=== PATIENT | male | born 1940 | race Hispanic/Latino ===

== ENCOUNTER 2022-10-02 20:02 | Emergency (ER) | payer MEDICARE ==
[~2022-10-02] VITALS: Ht 177.8 cm; Wt 90.7 kg
[2022-10-02] MEDS ORDERED: HYDRALAZINE HCL 10 MG TAB PO ONE ×2 (20:30→21:45)
== END 2022-10-02 22:52 | disposition home or self-care (01) ==
LOC: ER 20:16
DX: I10 Essential (primary) hypertension (principal); I25.10 Atherosclerotic heart disease of native coronary artery without angina pectoris; R94.31 Abnormal electrocardiogram [ECG] [EKG]; Z95.1 Presence of aortocoronary bypass graft
CPT/HCPCS: 93005; 99282

== ENCOUNTER 2022-11-07 05:18 | Observation (INO) | payer MEDICARE ==
[~2022-11-07] VITALS: Ht 177.8 cm; Wt 90.7 kg
[2022-11-07] MEDS ORDERED: MECLIZINE HCL 12.5 MG TAB PO STA (05:27)
[2022-11-07 05:42] LABS: BASOPHILS % 0.3 % (0.0-1.0); EOSINOPHILS # (AUTO) 0.2 (0.0-0.4); EOSINOPHILS % 2.3 % (0.0-6.0); HEMATOCRIT 36.1 % (38.2-49.6); HEMOGLOBIN 12.9 g/dL (14.0-18.0); LYMPHOCYTES # (AUTO) 1.3 (1.0-3.2); LYMPHOCYTES % 20.5 % (18.0-39.1); MEAN CORPUSCULAR HEMOGLOBIN 32.9 pg (28-32); MEAN CORPUSCULAR HGB CONC 35.7 g/dL (31-35); MEAN CORPUSCULAR VOLUME 92.1 fL (81-99); MONOCYTES # (AUTO) 0.5 (0.2-0.8); NEUTROPHILS # (AUTO) 4.4 (2.1-6.9); NEUTROPHILS % 68.4 % (38.7-80.0); PLATELET COUNT 161 x10e3/uL (140-360); RED BLOOD COUNT 3.92 x10e6/uL (4.3-5.7); RED CELL DISTRIBUTION WIDTH 11.8 % (11.7-14.4)
[2022-11-07 06:08] LABS: ALBUMIN/GLOBULIN RATIO 1.2 (0.8-2.0); ANION GAP 13.2 mmol/L (8-16); CALCIUM 9.2 mg/dL (8.4-10.2); CREATININE, SERUM 1.15 mg/dL (0.72-1.25); POTASSIUM 4.2 mmol/L (3.5-5.1)
[2022-11-07] MEDS ORDERED: ONDANSETRON HCL INJ 2MG/ML 2ML 2 MG/ML VIAL IV STA (06:11)
[2022-11-07 06:14] LABS: CREATINE KINASE MB 1.1 ng/mL (0-5.0)
[2022-11-07] MEDS ORDERED: ONDANSETRON HCL INJ 2MG/ML 2ML 2 MG/ML VIAL ONE (06:24)
[2022-11-07 06:36] LABS: CLARITY,URINE CLEAR (CLEAR); COLOR,URINE YELLOW (YELLOW); KETONES,URINE NEGATIVE (NEGATIVE); LEUKOCYTE ESTERASE ,URINE NEGATIVE (NEGATIVE); NITRITE,URINE NEGATIVE (NEGATIVE); PROTEIN,URINE DIPSTICK NEGATIVE (NEGATIVE); URINE UROBILINOGEN 0.2 mg/dL (0.2 - 1)
[2022-11-07 06:56] LABS: BACTERIA,URINE RARE /HPF; EPITHELIAL CELLS,URINE FEW /LPF; WBC,URINE (MAN) 0-5 /HPF (0-5)
[2022-11-07] MEDS ORDERED: ONDANSETRON HCL INJ 2MG/ML 2ML 2 MG/ML VIAL IV PRN (07:15)
[2022-11-07] MEDS ORDERED: TETANUS/DIPHTHERIA TOX ADULT 0.5 ML SYR IM ONE (07:45)
[2022-11-07] MEDS: DOXYCYCLINE HYCLATE TABLET 100 MG TAB PO SCH ×2 (08:39→16:31)
[2022-11-07] MEDS ORDERED: ATORVASTATIN CA40 MG PO (11:03)
[2022-11-07] MEDS ORDERED: OMEPRAZOLE40 MG PO (11:03)
[2022-11-07] MEDS ORDERED: AMLODIPINE BESY10 MG PO (11:03)
[2022-11-07] MEDS ORDERED: LISINOPRIL40 MG PO (11:03)
[2022-11-07] MEDS ORDERED: METOPROLOL SUC100 MG PO (11:03)
[2022-11-07] MEDS ORDERED: LISINOPRIL 20 MG TAB PO PRN (11:15)
[2022-11-07] MEDS ORDERED: ASPIRIN 81 MG CHEW TAB PO ONE (11:15)
[2022-11-07 15:19] VITALS: BP 132/53
[2022-11-07 15:21] VITALS: BP 132/53
[2022-11-07] MEDS ORDERED: IOPAMIDOL 370 MG/ML 100 ML INFUS..BTL INJ ONE (16:08)
[2022-11-07] MEDS ORDERED: SODIUM CHLORIDE 0.9% 100 ML ONE (16:08)
[2022-11-07 16:24] VITALS: BP 150/55
[2022-11-07] MEDS ORDERED: ALBUTEROL/IPRATROPIUM 3 ML NEB ONE (16:46)
[2022-11-07 20:00] VITALS: BP 134/55
[2022-11-08 00:04] VITALS: BP 134/50
[2022-11-08 04:24] VITALS: BP 147/63
[2022-11-08 06:09] LABS: BASOPHILS % 0.4 % (0.0-1.0); EOSINOPHILS # (AUTO) 0.2 (0.0-0.4); EOSINOPHILS % 2.4 % (0.0-6.0); HEMATOCRIT 33.8 % (38.2-49.6); HEMOGLOBIN 11.5 g/dL (14.0-18.0); LYMPHOCYTES # (AUTO) 1.2 (1.0-3.2); LYMPHOCYTES % 16.4 % (18.0-39.1); MEAN CORPUSCULAR HEMOGLOBIN 31.6 pg (28-32); MEAN CORPUSCULAR VOLUME 92.9 fL (81-99); MONOCYTES # (AUTO) 0.5 (0.2-0.8); MONOCYTES % 7.6 % (4.4-11.3); NEUTROPHILS # (AUTO) 5.2 (2.1-6.9); NEUTROPHILS % 72.9 % (38.7-80.0); PLATELET COUNT 199 x10e3/uL (140-360); RED BLOOD COUNT 3.64 x10e6/uL (4.3-5.7); RED CELL DISTRIBUTION WIDTH 11.6 % (11.7-14.4)
[2022-11-08 06:31] LABS: ANION GAP 11.2 mmol/L (8-16); CREATININE, SERUM 0.88 mg/dL (0.72-1.25); POTASSIUM 4.2 mmol/L (3.5-5.1)
[2022-11-08 08:44] VITALS: BP 145/61
[2022-11-08] MEDS: DOXYCYCLINE HYCLATE TABLET 100 MG TAB PO SCH ×2 (09:06→16:51)
[2022-11-08 12:30] VITALS: BP 147/60
[2022-11-08] MEDS ORDERED: AMLODIPINE BESYLATE 10 MG TAB PO ONE (13:30)
[2022-11-08 16:11] VITALS: BP 146/64
[2022-11-08] MEDS ORDERED: MECLIZINE HCL 12.5 MG TAB PO PRN (19:30)
[2022-11-08 20:00] VITALS: BP 159/69
[2022-11-08] MEDS ORDERED: ATORVASTATIN 40 MG TAB PO SCH (21:00)
[2022-11-09] MEDS ORDERED: ASPIRIN 81 MG ENTERIC COATED PO SCH (09:00)
== END 2022-11-08 20:00 | disposition home or self-care (01) ==
LOC: ER 05:25 → ERHOLD 07:12 → MED/SURG2 13:26
PROVIDERS: ADMIT Internal Medicine; ATTEND Internal Medicine
DX: R42 Dizziness and giddiness (principal); I10 Essential (primary) hypertension; I25.10 Atherosclerotic heart disease of native coronary artery without angina pectoris; Z20.822 Contact with and (suspected) exposure to COVID-19
CPT/HCPCS: 36415 ×2; 70450; 70496; 70498; 70551; 71045; 73130; 80048; 80053; 81001; 82550; 82553; 83880; 84484; 85025 ×2; 90471; 90714; 93005; 93306; 93880; 94799; 95819; 99285; G0378 ×2; J2405; J7050; J8597; Q9967; U0002